=== PATIENT | male | born 2000 | race African-American/Black ===

== ENCOUNTER 2021-07-10 18:30 | Emergency (ER) | payer MEDICAID ==
[~2021-07-10] VITALS: Ht 188 cm; Wt 85.7 kg
[2021-07-10 18:48] VITALS: BP 124/76
[2021-07-10] MEDS ORDERED: BACI30OI9 TP (19:02)
--- NOTE | 2021-07-10 19:08 | NUR ---
EMT AT BEDSIDE FOR WOUND CARE
--- NOTE | 2021-07-10 19:09 | NUR ---
Patient discharged to home in stable condition. Written and verbal after care instructions given. Patient verbalizes understanding of instruction.
== END 2021-07-10 19:16 | disposition home or self-care (01) ==
LOC: ER 18:34
DX: T65.91XA Toxic effect of unspecified substance, accidental (unintentional), initial encounter (principal); T22.612A Corrosion of second degree of left forearm, initial encounter; T23.672A Corrosion of second degree of left wrist, initial encounter; Y93.89 Activity, other specified; Y92.89 Other specified places as the place of occurrence of the external cause; Y99.8 Other external cause status